=== PATIENT | female | born 2000 | race Hispanic/Latino ===

== ENCOUNTER 2024-09-18 11:21 | Emergency (ER) | payer OTHER, MEDICAID ==
[~2024-09-18] VITALS: Ht 157.5 cm; Wt 108.9 kg
--- NOTE | 2024-09-18 11:31 | ERN ---
ED Note History of Present Illness Stated Complaint: 5MONTHS ,PELVIC PAIN,BLEEDING Chief Complaint: Abdominal Pain in Time Seen by MD: 11:27 Dictation: PATIENT IS A 24-YEAR-OLD FEMALE COMING IN TODAY WITH PELVIC CONTRACTIONS AND SPOTTING ONSET THIS MORNING. SHE ALSO IS HAVING NAUSEA VOMITING. STATES SHE IS APPROXIMATELY 18 WEEKS , G-TUBE P1. PATIENT OF DR. KERR AND WE WILL BE DELIVERED AT [facility] IN [facility]. SHE IS CURRENTLY DOWN HERE ON VACATION AND CAME TO THE EMERGENCY ROOM FOR FURTHER EVALUATION AND TREATMENT. Allergies: Coded Allergies: No Known Allergies (Unverified Allergy, Unknown, 09/18/24) Past Medical History : 2 Para: 1 Aborts: 0 RN Note Reviewed/Agreed w/PFSH: Yes Review of System Dictation CONSTITUTIONAL: NEGATIVE EXCEPT FOR HPI HEAD/FACE: NEGATIVE EXCEPT FOR HPI EENT: NEGATIVE EXCEPT FOR HPI RESPIRATORY: NEGATIVE EXCEPT FOR HPI GASTROINTESTINAL/ABDOMINAL: NEGATIVE EXCEPT FOR HPI NAUSEA VOMITING GENITOURINARY: NEGATIVE EXCEPT FOR HPI CONTRACTIONS WITH SPOTTING MUSCULOSKELETAL: NEGATIVE EXCEPT FOR HPI INTEGUMENTARY: NEGATIVE EXCEPT FOR HPI NEUROLOGICAL/PSYCH: NEGATIVE EXCEPT FOR HPI HEMATOLOGIC/LYMPHATIC: NEGATIVE EXCEPT FOR HPI ALL SYSTEMS NEGATIVE, EXCEPT NOTED ABOVE. 13 POINT REVIEW OF SYSTEMS ASSESSED AND ALL NEGATIVE EXCEPT FOR ABOVE. Initial Vital Sign VS Vital Signs Date Time Temp Pulse Resp B/P (MAP) Pulse Ox O2 Delivery O2 Flow Rate FiO2 09/18/24 11:28 97.9 78 18 110/63 78 Room Air 0 09/18/24 13:05 21 Physical Exam Dictation VITAL SIGNS REVIEWED GENERAL APPEARANCE: ALERT, ORIENTED X 3, MILD ACUTE DISTRESS, WELL DEVELOPED, NOURISHED. HEAD AND FACE: NON-TRAUMATIC. EYES: PERRL, PINK CONJUNCTIVAS, EYELID NO TRAUMA, ANTERIOR CHAMBER WITH ARCUS SENILIS. EARS: PINNAS INTACT AND NO SIGNS OF TRAUMA OR ERYTHEMA EAR CANALS CLEAR AND NO DISCHARGE TM NO ERYTHEMA NOSE: NO DISCHARGE, NO BLEEDING. OROPHARYNX: MOUTH NORMAL, TONGUE PINK, PHARYNX CLEAR,NO ERYTHEMA, TONSILS NO EXUDATES, NO ABSCESSES NOTED, MUCOUS MEMBRANE MOIST NECK: SUPPLE, NON-TENDER, NO THYROMEGALY, NO MASSES, NO JVD, NO BRUITS BREAST:DEFERRED CHEST:NO TENDERNESS, NO CREPITUS, NO PARADOXICAL MOVEMENT, NO RETRACTIONS LUNGS:CLEAR, WELL-VENTILATED, SYMMETRIC, NO RALES, NO WHEEZING, NO RHONCHI, NO STRIDOR, GOOD BREATH SOUNDS BILATERALLY HEART: REGULAR RATE, REGULAR RHYTHM, NO MURMUR, NO GALLOPS VASCULAR: NO PERIPHERAL EDEMA, ABDOMEN: SOFT, POSITIVE BOWEL SOUNDS, NONDISTENDED, NO GUARDING, NONTENDER, NO REBOUND, NO MASSES NO HEPATOMEGALY, NO SPLENOMEGALY, NO JOHNSON'S SIGN, NO HERNIAS. RECTAL: DEFERRED GENITAL: DEFERRED NEUROLOGICAL: NORMAL SPEECH, MOTOR FUNCTION INTACT, SENSORY FUNCTION INTACT MUSCULOSKELETAL: NECK NONTENDER, FULL RANGE OF MOTION, BACK NONTENDER, FULL RANGE OF MOTION, EXTREMITIES: NONTENDER, FULL RANGE OF MOTION SKIN: COLOR PINK, DRY, NO TURGOR, NO RASH, NO LACERATIONS, NO ABRASIONS, NO CONTUSIONS. LYMPHATIC: DEFERRED Results (Laboratory/Radiology) Laboratory/Radiology Laboratory Tests Test 09/18/24 14:03 White Blood Count 9.1 K/uL (4.8-10.8) Red Blood Count 3.77 MIL/uL (4.00-5.50) L Hemoglobin 12.1 g/dL (12.0-16.0) Hematocrit 34.9 % (36-48) L Mean Corpuscular Volume 92.6 fL (79-99) Mean Corpuscular Hemoglobin 32.1 pg (27.0-33.0) Mean Corpuscular Hemoglobin Concent 34.7 g/dL (32.0-36.0) Red Cell Distribution Width 12.7 % (11.0-15.5) Platelet Count 249 K/uL (130-400) Mean Platelet Volume 10.6 fL (7.5-10.5) H Immature Granulocyte % (Auto) 0.4 % (0-1) Neutrophils (%) (Auto) 74.3 % (40.0-77.0) Lymphocytes (%) (Auto) 19.9 % (21.0-51.0) L Monocytes (%) (Auto) 5.0 % (3.0-13.0) Eosinophils (%) (Auto) 0.1 % (0.0-8.0) Basophils (%) (Auto) 0.3 % (0.0-5.0) Neutrophils # (Auto) 6.8 K/uL (1.8-7.7) Lymphocytes # (Auto) 1.8 K/uL (1.0-4.8) Monocytes # (Auto) 0.5 K/uL (0.1-1.0) Eosinophils # (Auto) 0.01 K/uL (0.00-0.70) Basophils # (Auto) 0.03 K/uL (0.00-0.20) Absolute Immature Granulocyte (auto 0.04 K/uL (0-1) Nucleated Red Blood Cells 0.0 % (0.0-0.19) Sodium Level 138 mmol/L (136-145) Potassium Level 3.8 mmol/L (3.5-5.1) Chloride Level 103 mmol/L (101-111) Carbon Dioxide Level 25 mmol/L (21-32) Blood Urea Nitrogen 6 mg/dL (7-18) L Creatinine 0.5 mg/dL (0.5-1.0) Glomerular Filtration Rate Calc 134 mL/min (>90) Random Glucose 95 mg/dL (70-105) Total Calcium 9.1 mg/dL (8.5-10.1) Human Chorionic Gonadotropin, Quant 85797 mIU/mL (0-5) H OB ULTRASOUND DEMONSTRATES IUP/18W4D/ HEART TONES 158 NO BLEEDING Labs Reviewed?: Yes ED Course ED Course Orders Procedure Category Date Status Time Cbc With Differential LAB 09/18/24 Complete 11:27 Hcg,Quantitative LAB 09/18/24 Complete 11:27 Urinalysis Profile LAB 09/18/24 Logged 11:27 Ondansetron 4mg Inj PHA 09/18/24 Complete (Zofran 4mg Inj) 11:30 Basic Metabolic Panel LAB 09/18/24 Complete 11:27 Us Ob >14 Weeks US 09/18/24 Resulted 11:27 Type And Screen BBK 09/18/24 Complete 11:27 *Nursing CPOE 09/18/24 Transmitted Communication: 11:34 Current Medications Medications (Trade) Dose Ordered Sig/Deonte Route PRN Reason Start Time Stop Time Status Last Admin Dose Admin Ondansetron HCl (zoFRAN 4MG INJ) 4 mg ONCE ONCE IVP 09/18/24 11:30 09/18/24 11:39 DC Vital Signs Date Time Temp Pulse Resp B/P (MAP) Pulse Ox O2 Delivery O2 Flow Rate FiO2 09/18/24 15:29 98.2 77 16 99/49 98 Room Air* 0 21 09/18/24 13:05 98.2 77 16 99/49 98 Room Air* 0 21 09/18/24 11:28 97.9 78 18 110/63 78 Room Air 0 1505/PATIENT DISCHARGED HOME WITH IS AWARE THAT SHE HAS NO ACTIVE BLEEDING AT THIS TIME. DENIED NEED FOR IV FLUIDS DISCHARGED HOME WITH PAIN OF AND TOLD TO SEE HER DOCTOR TOMORROW WITHOUT FAIL. Medical Decision Making MDM MEDICAL DECISION-MAKING BASED ON BASIC LABS AND OB ULTRASOUND. LABS UNREMARKABLE OB ULTRASOUND DEMONSTRATES IUP DISCHARGED HOME WITH THE ABDOMINAL PAIN IN Procedure Procedure Dictation: 1405/PROCEDURE EXPLAINED TO PATIENT AND SHE AGREED CHRISTIN MAINSPRING STRIP GAUGER IN ROOM WITH THE EXAM PATIENT PLACED IN LITHOTOMY POSITION EXTERNAL EXAM IS NEGATIVE NO LESIONS NO BLEEDING INTERNAL EXAM OS IS CLOSED NO BLOOD IN THE VAULT NO LESIONS IN THE CANAL NO CMT PATIENT TOLERATED WELL DX & DISP Disposition: Discharge Departure Impression: Primary Impression: Abdominal pain in Condition: Stable Additional Instructions: FOLLOW-UP WITH PRIMARY CARE PROVIDER IN 1 TO 2 DAYS. TAKE MEDICATIONS DIRECTED HERE IN THE EMERGENCY ROOM. OKAY TO CONTINUE HOME MEDICATIONS UNLESS OTHERWISE DISCUSSED DURING YOUR VISIT IN THE EMERGENCY ROOM TODAY. RETURN TO YOUR NEAREST EMERGENCY ROOM IF SYMPTOMS WORSEN OR IF THERE IS NO IMPROVEMENT. CALL 911 IF YOU NEED IMMEDIATE ASSISTANCE. TAKE TYLENOL [id number] NEEDED AND IF NO CONTRAINDICATIONS ARE PRESENT. INCREASE ORAL HYDRATION. A WOUND CULTURE OR URINE CULTURE WAS ORDERED HERE IN THE EMERGENCY ROOM DEPARTMENT PLEASE FOLLOW-UP WITH PRIMARY CARE PROVIDER AND ADVISE THEM TO GET REPEAT PORTS FROM OUR FACILITY. IF YOU HAD ANY CLARA WRAP/SPLINTS THAT WERE APPLIED HERE, PLEASE DO NOT REMOVE THEM UNTIL YOU SEE YOUR PRIMARY CARE OR SPECIALTY. PELVIC REST AND SEE YOUR TOOLMAKER GRADE THREE DOCTOR TOMORROW WITHOUT FAIL FOR FOLLOW UP AND MANAGEMENT. Referrals: SELF,REFERRAL (PCP) Time of Disposition: 15:06 I have reviewed the case, and I agree with, Diagnosis and Plan I performed the substantive portion of the visit. I have reviewed and personally made and approve the management plan that is documented in the notes by myself or the WANDA. I acknowledge full responsibility for the patient's management plan. JUAN JOSE BARRY NP Sep 18, 2024 11:31 VENUS LUI MD Sep 18, 2024 19:11
--- NOTE | 2024-09-18 12:23 | HMCIMG ---
US OB >14 WEEKS HISTORY: SPOTTING, 18 WEEKS . FINDINGS: Single fetus in variable presentation. heart rate: 138 bpm. Amniotic fluid index: 12.88 cm- normal. Placenta: Anterior and grade 1. No gross structural abnormality noted. brain with normal lateral ventricles, choroid plexus, cerebellum, and cisterna magna, stomach, kidneys and urinary bladder, spine, cord insertion, all present and appear normal. Three-vessel cord and four-chamber view of the heart not available. Cervical canal length: cm cm. BIOMETRIC DATA: Biparietal diameter: 4.1 cm, consistent with gestational age of 18 weeks 5 days. Head circumference: 15.27 cm, consistent with gestational age of 18 weeks 2 days. Abdominal circumference: 12.92 cm, consistent with gestational age of 18 weeks 3 days. Femoral length: 2.85 cm, consistent with gestational age of 18 weeks 5 days. weight: 247 grams. IMPRESSION: Single intrauterine of 18 weeks 4 days.
[2024-09-18] MEDS: ondanSETRON 4MG INJ IVP ONE (13:04)
[2024-09-18 14:19] LABS: BASOPHILS # (AUTO) 0.03 K/uL (0.00-0.20); BASOPHILS % (AUTO) 0.3 % (0.0-5.0); EOSINOPHILS # (AUTO) 0.01 K/uL (0.00-0.70); EOSINOPHILS % (AUTO) 0.1 % (0.0-8.0); HEMATOCRIT 34.9 % (36-48); IMMATURE GRANULOCYTE ABSOLUTE 0.04 K/uL (0-1); LYMPHOCYTES # (AUTO) 1.8 K/uL (1.0-4.8); LYMPHOCYTES % (AUTO) 19.9 % (21.0-51.0); MEAN CORPUSCULAR HEMOGLOBIN 32.1 pg (27.0-33.0); MEAN CORPUSCULAR HGB CONC 34.7 g/dL (32.0-36.0); MEAN CORPUSCULAR VOLUME 92.6 fL (79-99); MONOCYTES # (AUTO) 0.5 K/uL (0.1-1.0); NEUTROPHILS # (AUTO) 6.8 K/uL (1.8-7.7); NEUTROPHILS % (AUTO) 74.3 % (40.0-77.0); PLATELET COUNT (AUTO) 249 K/uL (130-400); RED BLOOD CELL COUNT(AUTO) 3.77 MIL/uL (4.00-5.50); RED CELL DISTRIBUTION WIDTH 12.7 % (11.0-15.5); WHITE BLOOD COUNT (AUTO) 9.1 K/uL (4.8-10.8)
[2024-09-18 14:26] LABS: CREATININE 0.5 mg/dL (0.5-1.0); POTASSIUM 3.8 mmol/L (3.5-5.1)
[2024-09-18 15:29] VITALS: BP 99/49; PULSE 77; RESP 16; TEMP 98.3; O2SAT 98
== END 2024-09-18 15:32 | disposition home or self-care (01) ==
LOC: EDH 11:21
DX: O26.892 Other specified pregnancy related conditions, second trimester (principal); R10.2 Pelvic and perineal pain; Z3A.18 18 weeks gestation of pregnancy
CPT/HCPCS: 36415; 76805; 80048; 84702; 85025; 86850; 86900; 86901; 99284